=== PATIENT | male | born 1985 | race Caucasian/White ===

== ENCOUNTER 2018-03-18 01:09 | Emergency (ER) | payer SELFPAY ==
[~2018-03-18] VITALS: Ht 177.8 cm; Wt 63.5 kg
--- OUTSIDE RECORDS SUMMARY | 2018-03-18 01:16 | XMS REPORT ---
Author Author SHAKEEL ERIC [facility] Address [address] [place] [address] Care Team Providers Care Division Head Name Role Phone SHAKEEL ERIC Unavailable PROBLEMS Type Condition ICD9-CM Code [id number] Code Onset Dates Condition Status SNOMED Code Problem Depression F32.9 Active 97776788 Problem Anxiety F41.9 Active 63288606 ALLERGIES No Known Allergies SOCIAL HISTORY No smoking Hx information available PLAN OF CARE VITAL SIGNS MEDICATIONS Medication Instructions Dosage Frequency Start Date End Date Duration Status Vistaril 25 MG Orally 2 times a day 1 capsule as needed 12h 22 Feb, 2015 Active RESULTS No Results PROCEDURES No Known procedures IMMUNIZATIONS No Known Immunizations
--- OUTSIDE RECORDS SUMMARY | 2018-03-18 01:16 | XMS REPORT ---
Author Author SHAKEEL ERIC [facility] e[employer] Address Unknown Phone Unavailable Care Team Providers Care Belt Sander Stone Name Role Phone SHAKEEL ERIC CP Unavailable Allergies, Adverse Reactions, Alerts Substance Reaction Event Type N.K.D.A. Info Not Available Non Drug Allergy Problems Problem Type Condition Code Onset Dates Condition Status Problem Anxiety F41.9 Active Assessment Depression F32.9 Active Problem Depression F32.9 Active Assessment Anxiety F41.9 Active Medications Medication Code System Code Instructions Start Date End Date Status Dosage Clonidine HCl [facility] [address]-35 0.1 MG Orally Once a day in the am Feb 28, 2015 1 tablet Lexapro [facility] [address]-94 10 MG Orally Once a day Feb 28, 2015 1 tablet Vistaril [facility] [address]-55 25 MG Orally 2 times a day Feb 28, 2015 1 capsule as needed Procedures Procedure Coding System Code Date Office Visit, Est Pt., Level 3 CPT-4 13076 Mar 14, 2015 Vital Signs Date/Time: Mar 14, 2015 Temperature 97.5 F Weight 136.9 lbs Height 70 in BMI 19.64 Index Blood Pressure Diastolic 76 mmHg Blood Pressure Systolic 106 mmHg Cardiac Monitoring Heart Rate 60 bpm Results No Known Results Summary Purpose eClinicalWorks Submission
--- OUTSIDE RECORDS SUMMARY | 2018-03-18 01:16 | XMS REPORT ---
Author Author SHAKEEL ERIC [facility] eClinical[employer] Address Unknown Phone Unavailable Care Team Providers Care Silverer Name Role Phone SHAKEEL ERIC CP Unavailable Allergies, Adverse Reactions, Alerts Substance Reaction Event Type N.K.D.A. Info Not Available Non Drug Allergy Problems Problem Type Condition Code Onset Dates Condition Status Problem Anxiety F41.9 Active Assessment Depression F32.9 Active Problem Depression F32.9 Active Assessment Anxiety F41.9 Active Medications Medication Code System Code Instructions Start Date End Date Status Dosage Vistaril [facility] [address]-67 25 MG Orally 2 times a day Feb 28, 2015 1 capsule as needed Clonidine HCl [facility] [address]-94 0.1 MG Orally Once a day in the am Feb 28, 2015 1 tablet Lexapro [facility] [address]-20 10 MG Orally Once a day Feb 28, 2015 1 tablet Procedures Procedure Coding System Code Date COMPREHEN METABOLIC PANEL CPT-4 95418 Feb 28, 2015 ASSAY THYROID STIM HORMONE CPT-4 18702 Feb 28, 2015 COMPLETE CBC W/AUTO DIFF WBC CPT-4 72580 Feb 28, 2015 VENIPUNCT, ROUTINE* CPT-4 03315 Feb 28, 2015 Office Visit, Est Pt., Level 4 CPT-4 41971 Feb 28, 2015 Vital Signs Date/Time: Feb 28, 2015 Temperature 96.5 F Weight 138.9 lbs Height 70 in BMI 19.93 Index Blood Pressure Diastolic 70 mmHg Blood Pressure Systolic 120 mmHg Cardiac Monitoring Heart Rate 78 bpm Results Name Result Date Reference Range Unit Abnormality Flag CBC ----Lymphs 30 53819393 % ----Neutrophils 61 13562101 % ----Baso (Absolute) 0.0 20150228 0.0-0.2 x10E3/uL ----Hemoglobin 16.1 20150228 12.6-17.7 g/dL ----Eos (Absolute) 0.1 20150228 0.0-0.4 x10E3/uL ----Hematocrit 46.0 91919083 37.5-51.0 % ----Monocytes(Absolute) 0.4 59183359 0.1-0.9 x10E3/uL ----MCV 95 97066824 79-97 fL ----Lymphs (Absolute) 1.5 68860970 0.7-3.1 x10E3/uL ----MCH 33.1 64975511 26.6-33.0 pg H ----Neutrophils (Absolute) 3.0 97681426 1.4-7.0 x10E3/uL ----MCHC 35.0 91690024 31.5-35.7 g/dL ----Immature Granulocytes 0 36173576 % ----Basos 0 63853264 % ----RDW 13.2 45309032 12.3-15.4 % ----Immature Grans (Abs) 0.0 10899408 0.0-0.1 x10E3/uL ----WBC 4.9 22904584 3.4-10.8 x10E3/uL ----Platelets 263 00269673 150-379 x10E3/uL ----Eos 1 47390030 % ----RBC 4.87 85226956 4.14-5.80 x10E6/uL ----Monocytes 8 20150228 % CMP ----Globulin, Total 2.3 08047028 1.5-4.5 g/dL ----eGFR If Africn Am 100 11493603 >59 mL/min/1.73 ----eGFR If NonAfricn Am 87 26006282 >59 mL/min/1.73 ----Albumin, Serum 4.8 20150228 3.5-5.5 g/dL ----Sodium, Serum 139 20150228 134-144 mmol/L ----Protein, Total, Serum 7.1 23308498 6.0-8.5 g/dL ----BUN/Creatinine Ratio 13 20150228 8-19 ----Calcium, Serum 9.5 13380126 8.7-10.2 mg/dL ----AST (SGOT) 14 20150228 0-40 IU/L ----Glucose, Serum 88 20150228 65-99 mg/dL ----Alkaline Phosphatase, S 67 20150228 39-117 IU/L ----Bilirubin, Total 0.7 20150228 0.0-1.2 mg/dL ----Creatinine, Serum 1.13 20150228 0.76-1.27 mg/dL ----A/G Ratio 2.1 20150228 1.1-2.5 ----BUN 15 20150228 6-20 mg/dL ----Carbon Dioxide, Total 26 20150228 18-29 mmol/L ----ALT (SGPT) 19 20150228 0-44 IU/L ----Potassium, Serum 4.0 20150228 3.5-5.2 mmol/L ----Chloride, Serum 98 20150228 97-108 mmol/L ROUTINE VENIPUNCTURE TSH ----TSH 1.760 20150228 0.450-4.500 uIU/mL Summary Purpose eClinicalWorks Submission
--- OUTSIDE RECORDS SUMMARY | 2018-03-18 01:16 | XMS REPORT ---
Author Author SERGIO CASTANON Organization [facility] Address [address] [place] [address] Care Team Providers Care Inspector Wire Products Name Role Phone SERGIO CASTANON Unavailable PROBLEMS Type Condition ICD9-CM Code NIL06-KX Code Onset Dates Condition Status SNOMED Code Problem Other chronic pain G89.29 Active 52144247 Problem Pain in right shoulder M25.511 Active 56312344348233328 Problem Anxiety F41.9 Active 35902311 Problem Depression F32.9 Active 52290190 ALLERGIES No Information ENCOUNTERS Encounter Location Date Diagnosis [place] [id number] [address] May, [facility] [address] [address] Apr, Depression F32.9 ; Anxiety F41.9 ; Pain in right shoulder M25.511 and Other chronic pain G89.29 [facility] [address] [address] Mar, [facility] [address] [place] [id number] [place] [address]- 96[address] Mar, [facility] [address] [address] Mar, [facility] [address] [address] Mar, Anxiety F41.9 and Pain in unspecified knee M25.569 [facility] [address] [address] Dec, Depression F32.9 and Depression 311 [facility] [address] [address]- [address] Dec, Depression F32.9 and Pain in unspecified knee M25.569 [facility] [address] [place] [id number] [place] [address]- 6859 Sep, Depression F32.9 and Anxiety F41.9 [facility] [address] [place] [id number] [place] [address] 60479- 6270 Aug, Acute pain of right shoulder M25.511 [facility] [address] [address]- [address] Aug, Depression F32.9 [facility] [address] [address] Jun, Depression F32.9 [facility] [address] [address]- [address] May, Depression F32.9 [facility] [address] [address]- [address] Dec, Depression F32.9 ; Anxiety F41.9 ; Pain in right shoulder M25.511 and Pain in left shoulder M25.512 [facility] [address] [place] [id number] [place] [address] 47597- 5993 Dec, [facility] [address] [place] [id number] [place] [address] 65646- 6286 Nov, [facility] [address] [address]- [address] Aug, Anxiety F41.9 [facility] [address] [place] [id number] [place] [address] 7[address]69- 9488 July, Depression F32.9 and Anxiety F41.9 [facility] [address] [place] [id number] [place] [address] 93188- 4428 Apr, Depression F32.9 [facility] [address] [place] [id number] [place] [address] 38789- 7211 Mar, [facility] [address] [address] Mar, Depression F32.9 and Anxiety F41.9 [facility] [address] [place] [id number] [place] [address] 055947- 0006 Feb, Depression F32.9 and Anxiety F41.9 [facility] [address] [place] [id number] [place] [address] 46989- 3746 Nov, Depression 311 and Anxiety 300.00 [facility] [address] [place] [id number] [place] [address] 90713- 1376 Oct, Depression 311 and Anxiety 300.00 [facility] [address] [place] [id number] [place] [address] 486615- 9975 Oct, Depression 311 ; Anxiety 300.00 and Sinusitis 473.9 [facility] [address] [place] [id number] [place] [address] 11026- 8871 Sep, Knee pain, chronic 719.46 [facility] [address] [place] [id number] [place] [address] 12185- 3212 Sep, Sinusitis 473.9 ; Knee pain, chronic 719.46 ; Depression 311 and Anxiety 300.00 [facility] [address] [address] Feb, [facility] [address] [address] Feb, [facility] [address] [place] [address] Feb, [facility] [address] [address] Feb, [facility] [address] [address] Feb, [facility] [address] Feb, [facility] [address] [address] Dec, IMMUNIZATIONS No Known Immunizations SOCIAL HISTORY Never Assessed REASON FOR VISIT Refill request PLAN OF CARE VITAL SIGNS MEDICATIONS Unknown Medications RESULTS No Results PROCEDURES No Known procedures INSTRUCTIONS MEDICATIONS ADMINISTERED No Known Medications MEDICAL (GENERAL) HISTORY Type Description Date Medical History depression Medical History labrium tear Right shoulder Surgical History right shoulder surgery Hospitalization History surgery
--- OUTSIDE RECORDS SUMMARY | 2018-03-18 01:16 | XMS REPORT ---
Author Author SHAKEEL Anglin Organization [facility] Address [address] [place] [address] Care Team Providers Care Evaporator Supervisor Name Role Phone SHAKEEL Anglin Unavailable PROBLEMS Type Condition ICD9-CM Code BIW06-LI Code Onset Dates Condition Status SNOMED Code Problem Other chronic pain G89.29 Active 80480917 Problem Pain in right shoulder M25.511 Active 57170304199760633 Problem Anxiety F41.9 Active 72409041 Problem Depression F32.9 Active 30429895 ALLERGIES No Known Allergies ENCOUNTERS Encounter Location Date Diagnosis [place] [id number] [address] May, [facility] [place] [address] [address] Apr, Depression F32.9 ; Anxiety F41.9 ; Pain in right shoulder M25.511 and Other chronic pain G89.29 [facility] [place] [address] [place] [id number] [place] [address] 97161- [address] Mar, [facility] [place] [address] [place] [id number] [place] [address] 84203- 8787 Mar, [facility] [place] [address] [place] [id number] [place] [address] 72191- 04[address] Mar, [facility] [place] [address] [address] Mar, Anxiety F41.9 and Pain in unspecified knee M25.569 [facility] [place] [address] [place] [id number] [place] [address] 91089- 7210 Dec, Depression F32.9 and Depression 311 [facility] [place] [address] [place] [address] [place] [address] Dec, Depression F32.9 and Pain in unspecified knee M25.569 [facility] [place] [address] [place] [id number] [place] [address] 68764- 6506 Sep, Depression F32.9 and Anxiety F41.9 [facility] [place] [address] [place] [id number] [place] [address] 94831- 9969 Aug, Acute pain of right shoulder M25.511 [facility] [place] [address] [place] [id number] [place] [address] 10752- 1082 Aug, Depression F32.9 [facility] [place] [address] [address]- [address] Jun, Depression F32.9 [facility] [place] [address] [place] [id number] [place] [address] 90632- 3646 May, Depression F32.9 [facility] [place] [address] [place] [id number] [place] [address] 92635- 6968 Dec, Depression F32.9 ; Anxiety F41.9 ; Pain in right shoulder M25.511 and Pain in left shoulder M25.512 [facility] [place] [address] [place] [id number] [place] [address] 06800- 5952 Dec, [facility] [place] [address] [place] [id number] [place] [address] 43997- 2766 Nov, [facility] [place] [address] [place] [id number] [place] [address] 60034- 0915 Aug, Anxiety F41.9 [facility] [place] [address] [place] [id number] [place] [address] 64592- 7526 July, Depression F32.9 and Anxiety F41.9 [facility] [place] [address] [place] [id number] [place] [address] 80081- 8691 Apr, Depression F32.9 [facility] [place] [address] [place] [id number] [place] [address] 76888- 3998 Mar, [facility] [place] [address] [place] [address] 19177- 2614 Mar, Depression F32.9 and Anxiety F41.9 [facility] [place] [address] [place] [id number] [place] [address] 18054- 2136 Feb, Depression F32.9 and Anxiety F41.9 [facility] [place] [address] [place] [id number] [place] [address] 35533- 9226 Nov, Depression 311 and Anxiety 300.00 [facility] [place] [address] [place] [id number] [place] [address] 18424- 2268 Oct, Depression 311 and Anxiety 300.00 [facility] [place] [address] [place] [id number] [place] [address] 46574- 9111 Oct, Depression 311 ; Anxiety 300.00 and Sinusitis 473.9 [facility] [place] [address] [place] [id number] [place] [address] 55686- 0317 Sep, Knee pain, chronic 719.46 [facility] [place] [address] [place] [id number] [place] [address] 42543- 5359 Sep, Sinusitis 473.9 ; Knee pain, chronic 719.46 ; Depression 311 and Anxiety 300.00 [facility] [place] [address] [place] [address] 699673- 7490 Feb, [facility] [place] [address] [place] [id number] [place] [address] 40752 2546 Feb, [facility] [place] [address] [place] [id number] [place] [address] 37017 2544 Feb, [facility] [place] [address] [place] [id number] [place] [address] 42933- 3623 Feb, [facility] [place] [address] [place] [id number] [place] [address] 81377- 0963 Feb, [facility] [place] [address] [place] [id number] [place] [address] 06154- 3362 Feb, [facility] [place] [address] [facility] [id number] [place] [address] Dec, IMMUNIZATIONS No Known Immunizations SOCIAL HISTORY Never Assessed REASON FOR VISIT right shoulder pain, PT says he thinks re possible re tore it. At work he was doing heavy moving and felt multiple pops- [place] MA PLAN OF CARE Activity Details Follow Up 4 Weeks Reason: VITAL SIGNS Height 70 in 2016-09-03 Weight 138.7 lbs 2016-09-03 Temperature 98.4 degrees Fahrenheit 2016-09-03 Heart Rate 74 bpm 2016-09-03 Respiratory Rate 18 2016-09-03 BMI 19.90 kg/m2 2016-09-03 Blood pressure systolic 128 mmHg 2016-09-03 Blood pressure diastolic 94 mmHg 2016-09-03 MEDICATIONS Medication Instructions Dosage Frequency Start Date End Date Duration Status Escitalopram Oxalate 20 mg Orally Once a day 1 tablet 24h 30 days Active Ibuprofen 800 MG Orally Three times a day 1 tablet with food or milk 8h Aug, Sep, 30 day(s) Active Vistaril 25 MG Orally 2 times a day 1 capsule as needed 12h Feb, 30 days Active Clonidine HCl 0.1 MG Orally Once a day in the am 1 tablet 30 days Active Cyclobenzaprine HCl 10 mg Orally at hs 1 tablet Dec, 30 day(s ) Active RESULTS Name Result Date Reference Range Xray : Shoulder, Right 2 view (IN HOUSE) 2016-09-03 PROCEDURES Procedure Date Ordered Result Body Site X-RAY EXAM OF SHOULDER September 03, 2016 INSTRUCTIONS MEDICATIONS ADMINISTERED No Known Medications MEDICAL (GENERAL) HISTORY Type Description Date Medical History depression Medical History labrium tear Right shoulder Surgical History right shoulder surgery Hospitalization History surgery
--- OUTSIDE RECORDS SUMMARY | 2018-03-18 01:16 | XMS REPORT ---
Author Author SHAKEEL Anglin Organization [facility] Address [address] [place] [address] Care Team Providers Care Ice House Supervisor Name Role Phone SHAKEEL Anglin Unavailable PROBLEMS Type Condition ICD9-CM Code ESA40-AS Code Onset Dates Condition Status SNOMED Code Problem Other chronic pain G89.29 Active 98543513 Problem Pain in right shoulder M25.511 Active 53755620693355315 Problem Anxiety F41.9 Active 08902699 Problem Depression F32.9 Active 18259284 ALLERGIES No Known Allergies ENCOUNTERS Encounter Location Date Diagnosis [place] [address] [address] May, [facility] [address] [address] Apr, Depression F32.9 ; Anxiety F41.9 ; Pain in right shoulder M25.511 and Other chronic pain G89.29 [facility] [address] [place] [id number] [place] [address] 64507- 6606 Mar, [facility] [address] [place] [id number] [place] [address] 36146- 3224 Mar, [facility] [address] [place] [id number] [place] [address] 25729- 3509 Mar, [facility] [address] [address]- [address] Mar, Anxiety F41.9 and Pain in unspecified knee M25.569 [facility] [address] [place] [id number] [place] [address] 27365- 7105 Dec, Depression F32.9 and Depression 311 [place] [address] [place] [address] [place] [address]- 7410 Dec, Depression F32.9 and Pain in unspecified knee M25.569 [facility] [address] [place] [id number] [place] [address] 37405- 2096 Sep, Depression F32.9 and Anxiety F41.9 [facility] [address] [place] [id number] [place] [address] 51043- 3506 Aug, Acute pain of right shoulder M25.511 [facility] [address] [place] [id number] [place] [address] 47015- 7417 Aug, Depression F32.9 [facility] [address] 42027- 1138 Jun, Depression F32.9 [facility] [address] [place] [id number] [place] [address] 73537- 6710 May, Depression F32.9 [facility] [address] [place] [id number] [place] [address] 66628- 2149 Dec, Depression F32.9 ; Anxiety F41.9 ; Pain in right shoulder M25.511 and Pain in left shoulder M25.512 [facility] [address] [place] [id number] [place] [address] 80423- 2476 Dec, [facility] [address] [place] [id number] [place] [address] 51308- 3956 Nov, [facility] [address] [place] [id number] [place] [address] 03949- 8002 Aug, Anxiety F41.9 [facility] [address] [place] [id number] [place] [address] 42891- 8053 July, Depression F32.9 and Anxiety F41.9 [facility] [address] [place] [id number] [place] [address] 53961- 5452 Apr, Depression F32.9 [facility] [address] [place] [id number] [place] [address] 18048- 5964 Mar, [facility] [address] [place] [address] 27030- 3593 Mar, Depression F32.9 and Anxiety F41.9 [facility] [address] [place] [id number] [place] [address] 29666- 7506 Feb, Depression F32.9 and Anxiety F41.9 [facility] [address] [place] [id number] [place] [address] 34387- 5056 Nov, Depression 311 and Anxiety 300.00 [facility] [address] [place] [id number] [place] [address] 28297- 5509 Oct, Depression 311 and Anxiety 300.00 [facility] [address] [place] [id number] [place] [address] 35781- 6848 Oct, Depression 311 ; Anxiety 300.00 and Sinusitis 473.9 [facility] [address] [place] [id number] [place] [address] 89378- 8275 Sep, Knee pain, chronic 719.46 [facility] [address] [place] [id number] [place] [address] 57558- 6631 Sep, Sinusitis 473.9 ; Knee pain, chronic 719.46 ; Depression 311 and Anxiety 300.00 [facility] [address] [place] [address] 776422- 2090 Feb, [facility] [address] [place] [id number] [place] [address] 15694 2546 Feb, [facility] [address] [place] [id number] [place] [address] 70795 2541 Feb, [facility] [address] [place] [id number] [place] [address] 71293- 1346 Feb, [facility] [address] [place] [id number] [place] [address] 24633- 1034 Feb, [facility] [address] [place] [id number] [place] [address] 85446- 4310 Feb, [facility] [address] [facility] [id number] [place] [id number] Dec, IMMUNIZATIONS No Known Immunizations SOCIAL HISTORY Never Assessed REASON FOR VISIT Depression/ anxiety F/U, pt states that meds are doing ok to an extent. Bren PLAN OF CARE Activity Details Follow Up 3 Months Reason: VITAL SIGNS Height 70 in 2016-10-02 Weight 140.5 lbs 2016-10-02 Temperature 98.3 degrees Fahrenheit 2016-10-02 Heart Rate 80 bpm 2016-10-02 Respiratory Rate 20 2016-10-02 BMI 20.16 kg/m2 2016-10-02 Blood pressure systolic 104 mmHg 2016-10-02 Blood pressure diastolic 68 mmHg 2016-10-02 MEDICATIONS Medication Instructions Dosage Frequency Start Date End Date Duration Status Vistaril 25 MG Orally 2 times a day 1 capsule as needed 12h Feb, 30 days Active Clonidine HCl 0.1 MG Orally Once a day in the am 1 tablet 30 days Active Escitalopram Oxalate 20 mg Orally Once a day 1 tablet 24h 30 days Active Ibuprofen 800 MG Orally Three times a day 1 tablet with food or milk 8h Aug, Sep, 30 day(s) Active Cyclobenzaprine HCl 10 mg Orally at hs 1 tablet Dec, 30 day(s ) Active RESULTS No Results PROCEDURES No Known procedures INSTRUCTIONS MEDICATIONS ADMINISTERED No Known Medications MEDICAL (GENERAL) HISTORY Type Description Date Medical History depression Medical History labrium tear Right shoulder Surgical History right shoulder surgery Hospitalization History surgery
--- OUTSIDE RECORDS SUMMARY | 2018-03-18 01:16 | XMS REPORT ---
Author Author YVETTESAMIA [facility] Address [address] [place] [address] Care Team Providers Care Newspaper Delivery Counselor Name Role Phone SAMIA CRAWFORD Unavailable PROBLEMS Type Condition ICD9-CM Code [id number] Code Onset Dates Condition Status SNOMED Code Problem Other chronic pain G89.29 Active 62502417 Problem Pain in right shoulder M25.511 Active 99543580213709947 Problem Anxiety F41.9 Active 12572358 Problem Depression F32.9 Active 15463027 ALLERGIES No Known Allergies ENCOUNTERS Encounter Location Date Diagnosis [facility] [id number] [place] [address] 35073- 6672 Jan, Depression F32.9 ; Screening for diabetes mellitus Z13.1 ; Screening for hyperlipidemia Z13.220 ; Screening for thyroid disorder Z13.29 and Pain in right shoulder M25.511 [facility] [id number] [place] [address] 33322- 4766 May, [facility] [id number] [place] [address] 93117- 0479 Apr, Depression F32.9 ; Anxiety F41.9 ; Pain in right shoulder M25.511 and Other chronic pain G89.29 [facility] [id number] [place] [address] 54916- 2533 Mar, [facility] [address] 27718- 6012 Mar, [facility] [address] 27710- 4366 Mar, [facility] [id number] [place] [address] 09264- 6962 Mar, Anxiety F41.9 and Pain in unspecified knee M25.569 [facility] [id number] [place] [address] 53782- 7896 Dec, Depression F32.9 and Depression 311 [facility] [id number] [place] [address] [phone]- 9126 Dec, Depression F32.9 and Pain in unspecified knee M25.569 [facility] [id number] [place] [address] 59092- 5776 Sep, Depression F32.9 and Anxiety F41.9 [facility] [id number] [place] [address] 71763- 7488 Aug, Acute pain of right shoulder M25.511 [facility] [id number] [place] [address] 90262- 2026 Aug, Depression F32.9 [facility] [id number] [place] [address] 52081- 8081 Jun, Depression F32.9 [facility] [id number] [place] [address] 81493- 5963 May, Depression F32.9 [facility] [id number] [place] [address] 50314- 4725 Dec, Depression F32.9 ; Anxiety F41.9 ; Pain in right shoulder M25.511 and Pain in left shoulder M25.512 [facility] [id number] [place] [address] 20374- 7194 Dec, [facility] [id number] [place] [address] 76983- 3696 Nov, [facility] [id number] [place] [address] 77244- 7866 Aug, Anxiety F41.9 [facility] [id number] [place] [address] 46190- 5646 July, Depression F32.9 and Anxiety F41.9 [facility] [address] [place] [address] 96198- 4066 Apr, Depression F32.9 [facility] [id number] [place] [address] 00100- 4366 Mar, [facility] [id number] [place] [address] 91266- 4956 Mar, Depression F32.9 and Anxiety F41.9 [facility] [id number] [place] [address] 997680- 9183 Feb, Depression F32.9 and Anxiety F41.9 [facility] [id number] [place] [address] 443294- 4301 Nov, Depression 311 and Anxiety 300.00 [facility] [id number] [place] [address] 67957- 6209 Oct, Depression 311 and Anxiety 300.00 [facility] [id number] [place] [address] 88462- 9080 Oct, Depression 311 ; Anxiety 300.00 and Sinusitis 473.9 [facility] [id number] [place] [address] 07321- 5691 Sep, Knee pain, chronic 719.46 [facility] [id number] [place] [address] 01772- 3628 Sep, Sinusitis 473.9 ; Knee pain, chronic 719.46 ; Depression 311 and Anxiety 300.00 [facility] [address] [place] [address] 47908- 1189 Feb, [facility] [id number] [place] [address] 712041- 3577 Feb, [facility] [id number] [place] [address] 096352- 2083 Feb, [facility] [id number] [place] [address] 971030- 0476 Feb, [facility] [address] [facility] [id number] [place] [address]- 2046 Feb, [facility] [address] [facility] [id number] 8820 Feb, [facility] [address] [facility] [id number] [place]- 0405 Dec, IMMUNIZATIONS No Known Immunizations SOCIAL HISTORY Never Assessed REASON FOR VISIT new patient -- pam hill PLAN OF CARE Activity Details Follow Up 6 Months or as indicated by lab Reason:depression VITAL SIGNS Height 70 in 2018-01-09 Weight 141.0 lbs 2018-01-09 Temperature 97.8 degrees Fahrenheit 2018-01-09 BMI 20.23 kg/m2 2018-01-09 Blood pressure systolic 122 mmHg 2018-01-09 Blood pressure diastolic 78 mmHg 2018-01-09 MEDICATIONS Medication Instructions Dosage Frequency Start Date End Date Duration Status Escitalopram Oxalate 20 mg Orally Once a day 1 tablet 24h Active Clonidine HCl 0.1 MG Orally Once a day in the am 1 tablet Active Vistaril 25 MG Orally 2 times a day 1 capsule as needed 12h Feb, Active Ibuprofen 800 MG Orally Three times a day 1 tablet with food or milk 8h Active RESULTS No Results PROCEDURES Procedure Date Ordered Result Body Site LIPID PANEL Jan 09, 2018 ASSAY THYROID STIM HORMONE Jan 09, 2018 COMPREHEN METABOLIC PANEL Jan 09, 2018 INSTRUCTIONS MEDICATIONS ADMINISTERED No Known Medications MEDICAL (GENERAL) HISTORY Type Description Date Medical History depression Medical History labrium tear Right shoulder Surgical History right shoulder surgery Hospitalization History surgery
--- OUTSIDE RECORDS SUMMARY | 2018-03-18 01:17 | XMS REPORT ---
Author Author SERGIO CASTANON Organization [facility] Address [address] [place] [address] Care Team Providers Care Inspector Shells Name Role Phone SERGIO CASTANON Unavailable PROBLEMS Type Condition ICD9-CM Code EMP17-OT Code Onset Dates Condition Status SNOMED Code Problem Other chronic pain G89.29 Active 86192844 Problem Pain in right shoulder M25.511 Active 29000031738678745 Problem Anxiety F41.9 Active 17612427 Problem Depression F32.9 Active 69755002 ALLERGIES No Information ENCOUNTERS Encounter Location Date Diagnosis [place] [id number] [address]- 6892 May, [facility] [address] 24767- 0115 Apr, Depression F32.9 ; Anxiety F41.9 ; Pain in right shoulder M25.511 and Other chronic pain G89.29 [facility] [address] 96454- 9230 Mar, [facility] [id number] [place] [address] 59194- 3684 Mar, [facility] [address] 58923- 6383 Mar, [facility] [address] 98048- 8978 Mar, Anxiety F41.9 and Pain in unspecified knee M25.569 [facility] [address] 74031- 3074 Dec, Depression F32.9 and Depression 311 [facility] [address] 77557- 8892 Dec, Depression F32.9 and Pain in unspecified knee M25.569 [facility] [id number] [place] [address] 36044- 0540 Sep, Depression F32.9 and Anxiety F41.9 [facility] [id number] [place] [address] 84495- 5753 Aug, Acute pain of right shoulder M25.511 [facility] [address] 59948- 0736 Aug, Depression F32.9 [facility] [address] 92947- 1764 Jun, Depression F32.9 [facility] [address] 32311- 2264 May, Depression F32.9 [facility] [address] 13460- 6096 Dec, Depression F32.9 ; Anxiety F41.9 ; Pain in right shoulder M25.511 and Pain in left shoulder M25.512 [facility] [id number] [place] [address] 76944- 5892 Dec, [facility] [id number] [place] [address] 83307- 2479 Nov, [facility] [address] 91414- 0510 Aug, Anxiety F41.9 [facility] [id number] [place] [address] 76332- 5768 July, Depression F32.9 and Anxiety F41.9 [facility] [id number] [place] [address] 62838- 9106 Apr, Depression F32.9 [facility] [id number] [place] [address] 97106- 0931 Mar, [facility] [address] [address]- 6316 Mar, Depression F32.9 and Anxiety F41.9 [facility] [id number] [place] [address] 623807- 5716 Feb, Depression F32.9 and Anxiety F41.9 [facility] [id number] [place] [address] 17978- 8786 Nov, Depression 311 and Anxiety 300.00 [facility] [id number] [place] [address] 06122- 1995 Oct, Depression 311 and Anxiety 300.00 [facility] [id number] [place] [address] 371899- 5624 Oct, Depression 311 ; Anxiety 300.00 and Sinusitis 473.9 [facility] [id number] [place] [address] 53084- 9957 Sep, Knee pain, chronic 719.46 [facility] [id number] [place] [address] 49494- 9238 Sep, Sinusitis 473.9 ; Knee pain, chronic 719.46 ; Depression 311 and Anxiety 300.00 [facility] [address] [address]- 5669 Feb, [facility] [address] [address]- 9441 Feb, [facility] [id number] 0338 Feb, [facility] [address] 7080 Feb, [facility] [address] 7096 Feb, [facility] [address] 5817 Feb, [facility] [address] [address]- 1192 Dec, IMMUNIZATIONS No Known Immunizations SOCIAL HISTORY Never Assessed REASON FOR VISIT med refill PLAN OF CARE VITAL SIGNS MEDICATIONS Unknown Medications RESULTS No Results PROCEDURES No Known procedures INSTRUCTIONS MEDICATIONS ADMINISTERED No Known Medications MEDICAL (GENERAL) HISTORY Type Description Date Medical History depression Medical History labrium tear Right shoulder Surgical History right shoulder surgery Hospitalization History surgery
--- OUTSIDE RECORDS SUMMARY | 2018-03-18 01:17 | XMS REPORT ---
Author Author MONIKA LOW [employer] Address Unknown Phone Unavailable Care Team Providers Care Salon Designer Name Role Phone MONIKA LOW CP Unavailable Allergies, Adverse Reactions, Alerts Substance Reaction Event Type N.K.D.A. Info Not Available Non Drug Allergy Problems Problem Type Condition Code Onset Dates Condition Status Problem Anxiety F41.9 Active Assessment Depression F32.9 Active Problem Depression F32.9 Active Medications Medication Code System Code Instructions Start Date End Date Status Dosage Vistaril [facility] [address]-90 25 MG Orally 2 times a day Feb 28, 2015 1 capsule as needed Clonidine HCl [facility] [address]-95 0.1 MG Orally Once a day in the am Feb 28, 2015 1 tablet Lexapro [facility] [address]-02 10 MG Orally Once a day Feb 28, 2015 1 tablet Vital Signs Date/Time: Apr 13, 2015 Cardiac Monitoring Heart Rate 60 bpm Weight 136 lbs Height 70 in BMI 19.51 Index Blood Pressure Diastolic 64 mmHg Blood Pressure Systolic 100 mmHg Results No Known Results Summary Purpose [employer] Submission
--- OUTSIDE RECORDS SUMMARY | 2018-03-18 01:17 | XMS REPORT ---
Author Author SERGIO CASTANON Organization [facility] Address [address] [place] [address] Care Team Providers Care Card Room Manager Name Role Phone SERGIO CASTANON Unavailable PROBLEMS Type Condition ICD9-CM Code [id number] Code Onset Dates Condition Status SNOMED Code Problem Other chronic pain G89.29 Active 65002424 Problem Pain in right shoulder M25.511 Active 71037466612044819 Problem Anxiety F41.9 Active 04598965 Problem Depression F32.9 Active 10646005 ALLERGIES No Information ENCOUNTERS Encounter Location Date Diagnosis [place] [id number] [address]- [address] May, [facility] [address] 7[address]58- 6252 Apr, Depression F32.9 ; Anxiety F41.9 ; Pain in right shoulder M25.511 and Other chronic pain G89.29 [facility] [address] 08571- 6362 Mar, [facility] [id number] [place] [address] 26682- 3266 Mar, [facility] [address] 99836- 9529 Mar, [facility] [address] 71684- 6681 Mar, Anxiety F41.9 and Pain in unspecified knee M25.569 [facility] [address] 99997- 6346 Dec, Depression F32.[address] [facility] [address] 87595- 4598 Dec, Depression F32.9 and Pain in unspecified knee M25.569 [facility] [id number] [place] [address] 59673- 0022 Sep, Depression F32.[address] [facility] [id number] [place] [address] 76952- 9155 Aug, Acute pain of right shoulder M25.511 [facility] [address] 97315- 7892 Aug, Depression F32.9 [facility] [address] 94713- 9398 Jun, Depression [address]32.9 [facility] [address] 89249- 7100 May, Depression F32.9 [facility] [address] 49563- 6611 Dec, Depression F32.9 ; Anxiety F41.9 ; Pain in right shoulder M25.511 and Pain in left shoulder M25.512 [facility] [id number] [place] [address] 49785- 0542 Dec, [facility] [id number] [place] [address] 12760- 6261 Nov, [facility] [address] 18472- 0662 Aug, Anxiety F41.9 [facility] [id number] [place] [address] 53173- 3890 July, Depression F32.[address] [facility] [id number] [place] [address] 78097- 8567 Apr, Depression F32.9 [facility] [id number] [place] [address] 67148- 3039 Mar, [facility] [address] [address]- 3999 Mar, Depression F32.[address] [facility] [id number] [place] [address] 811898- 7316 Feb, Depression F32.[address] [facility] [id number] [place] [address] 79739- 9746 Nov, Depression [address] [facility] [id number] [place] [address] 79059- 3512 Oct, Depression [address] [facility] [id number] [place] [address] 977116- 7784 Oct, Depression 311 ; Anxiety 300.[address] [facility] [id number] [place] [address] 90333- 9313 Sep, Knee pain, chronic 719.46 [facility] [id number] [place] [address] 41574- 6233 Sep, Sinusitis 473.9 ; Knee pain, chronic 719.46 ; Depression [address] [facility] [address] [address]- 8351 Feb, [facility] [address] [address] 2184 Feb, [facility] [id number] 7153 Feb, [facility] [address] 64[address] Feb, [facility] [address] Feb, [facility] [address] [address] Feb, [facility] [address] [address]- 8976 Dec, IMMUNIZATIONS No Known Immunizations SOCIAL HISTORY Never Assessed REASON FOR VISIT Controlled Med Refill PLAN OF CARE VITAL SIGNS MEDICATIONS Unknown Medications RESULTS No Results PROCEDURES No Known procedures INSTRUCTIONS MEDICATIONS ADMINISTERED No Known Medications MEDICAL (GENERAL) HISTORY Type Description Date Medical History depression Medical History labrium tear Right shoulder Surgical History right shoulder surgery Hospitalization History surgery
--- OUTSIDE RECORDS SUMMARY | 2018-03-18 01:17 | XMS REPORT ---
Author Author SHAKEEL ERIC [facility] Address [address] [place] [address] Care Team Providers Care Associate Principal Name Role Phone SHAKEEL ERIC Unavailable PROBLEMS Type Condition ICD9-CM Code WEW66-CD Code Onset Dates Condition Status SNOMED Code Problem Anxiety F41.9 Active 46579510 Problem Depression F32.9 Active 69215839 ALLERGIES No Information SOCIAL HISTORY Never Assessed PLAN OF CARE VITAL SIGNS MEDICATIONS Medication Instructions Dosage Frequency Start Date End Date Duration Status Cyclobenzaprine HCl 10 mg Orally at hs 1 tablet Dec, 30 day(s ) Active Escitalopram Oxalate 20 mg Orally Once a day 1 tablet 24h 30 days Active RESULTS No Results PROCEDURES No Known procedures IMMUNIZATIONS No Known Immunizations MEDICAL (GENERAL) HISTORY Type Description Date Medical History depression Surgical History right shoulder surgery Hospitalization History surgery
--- OUTSIDE RECORDS SUMMARY | 2018-03-18 01:17 | XMS REPORT ---
Author Author SHAKEEL ERIC [facility] [employer] Address Unknown Phone Unavailable Care Team Providers Care Plumbing Engineer Name Role Phone SHAKEEL ERIC Unavailable Allergies No Known Allergies Problems Problem Type Condition Code Onset Dates Condition Status Problem Anxiety F41.9 Active Problem Depression F32.9 Active Medications Medication Code System Code Instructions Start Date End Date Status Dosage Lexapro [facility] [address]-45 10 MG Orally Once a day Feb 28, 2015 1 tablet Clonidine HCl [facility] [address]-09 0.1 MG Orally Once a day in the am Feb 28, 2015 1 tablet Vistaril [facility] [address]-62 25 MG Orally 2 times a day Feb 28, 2015 1 capsule as needed Results No Known Results Summary Purpose [employer]Clinical[employer] Submission
--- OUTSIDE RECORDS SUMMARY | 2018-03-18 01:17 | XMS REPORT ---
Author Author SERGIO CASTANON Organization [facility] Address [address] [place] [address] Care Team Providers Care Intake Clerk Name Role Phone SERGIO CASTANON Unavailable PROBLEMS Type Condition ICD9-CM Code [id number] Code Onset Dates Condition Status SNOMED Code Problem Other chronic pain G89.29 Active 06764526 Problem Pain in right shoulder M25.511 Active 90460749980080871 Problem Anxiety F41.9 Active 95591545 Problem Depression F32.9 Active 68400456 ALLERGIES No Information ENCOUNTERS Encounter Location Date Diagnosis [place] [address] [address] May, [facility] [address] [address] Apr, Depression F32.9 ; Anxiety F41.9 ; Pain in right shoulder M25.511 and Other chronic pain G89.29 [facility] [address] [address]- [address] Mar, [facility] [address] [place] [id number] [place] [address] 13955- 6660 Mar, [facility] [address] [address]- [address] Mar, [facility] [address] [address]- 3[address] Mar, Anxiety F41.9 and Pain in unspecified knee M25.569 [facility] [address] [address]- [address] Dec, Depression F32.9 and Depression 311 [facility] [address] [address]- 1314 Dec, Depression F32.9 and Pain in unspecified knee M25.569 [facility] [address] [place] [id number] [place] [address] 77400- 5570 Sep, Depression F32.9 and Anxiety F41.9 [facility] [address] [place] [id number] [place] [address] 90419- 6861 Aug, Acute pain of right shoulder M25.511 [facility] [address] [address]- [address] Aug, Depression F32.9 [facility] [address] [address]- 3325 Jun, Depression F32.9 [facility] [address] 18[address]- 2824 May, Depression F32.9 [facility] [address] 429[address]- 3388 Dec, Depression F32.9 ; Anxiety F41.9 ; Pain in right shoulder M25.511 and Pain in left shoulder M25.512 [facility] [address] [place] [id number] [place] [address] 50393- 2260 Dec, [facility] [address] [place] [id number] [place] [address] 03428- 8804 Nov, [facility] [address] 9[address]- 4911 Aug, Anxiety F41.9 [facility] [address] [place] [id number] [place] [address] 93260- 5332 July, Depression F32.9 and Anxiety F41.9 [facility] [address] [place] [id number] [place] [address] 51171- 9180 Apr, Depression F32.9 [facility] [address] [place] [id number] [place] [address] 32051- 8854 Mar, [facility] [address] [address] 8[address] Mar, Depression F32.9 and Anxiety F41.9 [facility] [address] [place] [id number] [place] [address] 081754- 5366 Feb, Depression F32.9 and Anxiety F41.9 [facility] [address] [place] [id number] [place] [address] 68242- 2396 Nov, Depression 311 and Anxiety 300.00 [facility] [address] [id number] [place] [address] 57213- 7368 Oct, Depression 311 and Anxiety 300.00 [facility] [address] [place] [id number] [place] [address] 102677- 2536 Oct, Depression 311 ; Anxiety 300.00 and Sinusitis 473.9 [facility] [address] [id number] [place] [address] 07287- 6593 Sep, Knee pain, chronic 719.46 [facility] [address] [id number] [place] [address] 16893- 7764 Sep, Sinusitis 473.9 ; Knee pain, chronic 719.46 ; Depression 311 and Anxiety 300.00 [facility] [address] [address]- 05[address] Feb, [facility] [address] [address]- 4798 Feb, [facility] [address] [place] [id number] 8[address] Feb, [facility] [address] [address] Feb, [facility] [address] [address] Feb, [facility] [address] 6[address] Feb, [facility] [address] [address]- 9695 Dec, IMMUNIZATIONS No Known Immunizations SOCIAL HISTORY Never Assessed REASON FOR VISIT PLAN OF CARE VITAL SIGNS MEDICATIONS Medication Instructions Dosage Frequency Start Date End Date Duration Status Escitalopram Oxalate 20 mg Orally Once a day 1 tablet 24h 30 Active RESULTS No Results PROCEDURES No Known procedures INSTRUCTIONS MEDICATIONS ADMINISTERED No Known Medications MEDICAL (GENERAL) HISTORY Type Description Date Medical History depression Medical History labrium tear Right shoulder Surgical History right shoulder surgery Hospitalization History surgery
--- OUTSIDE RECORDS SUMMARY | 2018-03-18 01:17 | XMS REPORT ---
Author SHAKEEL Garcia [facility] [employer] Address Unknown Phone Unavailable Care Team Providers Care Fish Hatchery Man Name Role Phone SHAKEEL ERIC CP Unavailable Allergies, Adverse Reactions, Alerts Substance Reaction Event Type N.K.D.A. Info Not Available Non Drug Allergy Problems Problem Type Condition ICD-9 Code Onset Dates Condition Status Problem Knee pain, chronic 719.46 Active Problem Depression 311 Active Problem Sinusitis 473.9 Active Assessment Anxiety 300.00 Active Problem Anxiety 300.00 Active Assessment Depression 311 Active Medications Medication Code System Code Instructions Start Date End Date Status Dosage BusPIRone HCl [facility] [address]-45 10 MG Orally Twice a day Nov 21, 2014 1 tablet Procedures Procedure Coding System Code Date Office Visit, Est Pt., Level 3 CPT-4 63102 Nov 21, 2014 Vital Signs Date/Time: Nov 21, 2014 Temperature 97.4 F Weight 137.5 lbs Height 70 in BMI 19.73 Index Blood Pressure Diastolic 60 mmHg Blood Pressure Systolic 120 mmHg Cardiac Monitoring Heart Rate 70 bpm Results No Known Results Summary Purpose [employer]Clinical[employer] Submission
--- OUTSIDE RECORDS SUMMARY | 2018-03-18 01:17 | XMS REPORT ---
Author Author SHAKEEL Anglin Organization [facility] Address [address] [place] [address] Care Team Providers Care Thread Winder Name Role Phone SHAKEEL Anglin Unavailable PROBLEMS Type Condition ICD9-CM Code [id number]-WQ Code Onset Dates Condition Status SNOMED Code Problem Other chronic pain G89.29 Active 39891320 Problem Pain in right shoulder M25.511 Active 01426484455016322 Problem Anxiety F41.9 Active 03564091 Problem Depression F32.9 Active 58184011 ALLERGIES No Information ENCOUNTERS Encounter Location Date Diagnosis [place] [address] [address] May, [facility] [address] [address]- [address] Apr, Depression F32.9 ; Anxiety F41.9 ; Pain in right shoulder M25.511 and Other chronic pain G89.29 [facility] [address] [place] [id number] [place] [address] 59736- 7659 Mar, [facility] [address] 0[address]- 3[address] Mar, [facility] [address] 17[address]- 49[address] Mar, [facility] [address] 398[address]- 5234 Mar, Anxiety F41.9 and Pain in unspecified knee M25.569 [facility] [address] 7[address]- 1226 Dec, Depression F32.9 and Depression 311 [facility] [address] [place] [address]- 4942 Dec, Depression F32.9 and Pain in unspecified knee M25.569 [facility] [address] [place] [id number] [place] [address] 96764- 8886 Sep, Depression F32.9 and Anxiety F41.9 [facility] [address] [place] [id number] [place] [address] 77407- 8762 Aug, Acute pain of right shoulder M25.511 [facility] [address] [place] [id number] [place] [address] 41535- 3864 Aug, Depression F32.9 [facility] [address] 780[address]- 5941 Jun, Depression F32.9 [facility] [address] [place] [id number] [place] [address] 27327- 8879 May, Depression F32.9 [facility] [address] [place] [id number] [place] [address] 08871- 4224 Dec, Depression F32.9 ; Anxiety F41.9 ; Pain in right shoulder M25.511 and Pain in left shoulder M25.512 [facility] [address] [place] [id number] [place] [address] 96521- 2609 Dec, [facility] [address] [place] [id number] [place] [address] 38101- 6034 Nov, [facility] [address] [place] [id number] [place] [address] 40699- 0527 Aug, Anxiety F41.9 [facility] [address] [place] [id number] [place] [address] 32666- 1161 July, Depression F32.9 and Anxiety F41.9 [facility] [address] [place] [id number] [place] [address] 92485- 0106 Apr, Depression F32.9 [facility] [address] [place] [id number] [place] [address] 10530- 0781 Mar, [facility] [address] [address]- 4603 Mar, Depression F32.9 and Anxiety F41.9 [facility] [address] [place] [id number] [place] [address] 32183- 1806 Feb, Depression F32.9 and Anxiety F41.9 [facility] [address] [place] [id number] [place] [address] 68956- 8106 Nov, Depression 311 and Anxiety 300.00 [facility] [address] [place] [id number] [place] [address] 42593- 5310 Oct, Depression 311 and Anxiety 300.00 [facility] [address] [place] [id number] [place] [address] 012918- 0080 Oct, Depression 311 ; Anxiety 300.00 and Sinusitis 473.9 [facility] [address] [place] [id number] [place] [address] 56904- 5532 Sep, Knee pain, chronic 719.46 [facility] [address] [place] [id number] [place] [address] 56581- 2009 Sep, Sinusitis 473.9 ; Knee pain, chronic 719.46 ; Depression 311 and Anxiety 300.00 [facility] [address] [place] [address] 644613- 4623 Feb, [facility] [address] [place] [id number] [place] [address] 64401- 8516 Feb, [facility] [address] [place] [id number] [place] [address] 33750- 5979 Feb, [facility] [address] [place] [id number] [place] [address] 39260- 6957 Feb, [facility] [address] [place] [address] 854844- 4963 Feb, [facility] [address] [place] [id number] [place] [address] 81302- 3296 Feb, [facility] [address] [facility] [id number] [address]- 9[address] Dec, IMMUNIZATIONS No Known Immunizations SOCIAL HISTORY Never Assessed REASON FOR VISIT Repository Medication PLAN OF CARE VITAL SIGNS MEDICATIONS Medication Instructions Dosage Frequency Start Date End Date Duration Status Escitalopram Oxalate 20 mg Orally Once a day 1 tablet 24h 30 days Active Ibuprofen 800 MG Orally Three times a day 1 tablet with food or milk 8h Aug, Active RESULTS No Results PROCEDURES No Known procedures INSTRUCTIONS MEDICATIONS ADMINISTERED No Known Medications MEDICAL (GENERAL) HISTORY Type Description Date Medical History depression Medical History labrium tear Right shoulder Surgical History right shoulder surgery Hospitalization History surgery
--- OUTSIDE RECORDS SUMMARY | 2018-03-18 01:17 | XMS REPORT ---
Author Author SERGIO CASTANON Organization [facility] Address [address] [place] [address] Care Team Providers Care Spirits Model Name Role Phone SERGIO CASTANON Unavailable PROBLEMS Type Condition ICD9-CM Code [id number] Code Onset Dates Condition Status SNOMED Code Problem Other chronic pain G89.29 Active 39921907 Problem Pain in right shoulder M25.511 Active 03391565871235047 Problem Anxiety F41.9 Active 59684011 Problem Depression F32.9 Active 74071828 ALLERGIES No Known Allergies ENCOUNTERS Encounter Location Date Diagnosis [place] [address] [address] May, [facility] [address] [address]- [address] Apr, Depression F32.9 ; Anxiety F41.9 ; Pain in right shoulder M25.511 and Other chronic pain G89.29 [facility] [address] [address]07[address]- 9061 Mar, [facility] [address] [place] [id number] [place] [address] 83814- 9364 Mar, [facility] [address] 163[address]- 7456 Mar, [facility] [address] 93708- 6137 Mar, Anxiety F41.9 and Pain in unspecified knee M25.569 [facility] [address] 47980- 4939 Dec, Depression F32.9 and Depression 311 [facility] [address] [address]- 9854 Dec, Depression F32.9 and Pain in unspecified knee M25.569 [facility] [address] [place] [id number] [place] [address] 82508- 4953 Sep, Depression F32.9 and Anxiety F41.9 [facility] [address] [place] [id number] [place] [address] 67873- 4375 Aug, Acute pain of right shoulder M25.511 [facility] [address] 227[address]- 6308 Aug, Depression F32.9 [facility] [address] 82082- 5761 Jun, Depression F32.9 [facility] [address] [place] [id number] [place] [address] 62515- 5834 May, Depression F32.9 [facility] [address] 35868- 6540 Dec, Depression F32.9 ; Anxiety F41.9 ; Pain in right shoulder M25.511 and Pain in left shoulder M25.512 [facility] [address] [place] [id number] [place] [address] 89738- 6974 Dec, [facility] [address] [place] [id number] [place] [address] 46741- 9601 Nov, [facility] [address] [place] [id number] [place] [address] 02574- 4121 Aug, Anxiety F41.9 [facility] [address] [place] [id number] [place] [address] 25087- 2968 July, Depression F32.9 and Anxiety F41.9 [facility] [address] [place] [id number] [place] [address] 01383- 2636 Apr, Depression F32.9 [facility] [address] [place] [id number] [place] [address] 10769- 5075 Mar, [place] [address] [address]- 2688 Mar, Depression F32.9 and Anxiety F41.9 [facility] [address] [place] [id number] [place] [address] 172718- 3156 Feb, Depression F32.9 and Anxiety F41.9 [facility] [address] [place] [id number] [place] [address] 80985- 8796 Nov, Depression 311 and Anxiety 300.00 [facility] [address] [place] [id number] [place] [address] 19749 2549 Oct, Depression 311 and Anxiety 300.00 [facility] [address] [place] [id number] [place] [address] 044331- 9238 Oct, Depression 311 ; Anxiety 300.00 and Sinusitis 473.9 [facility] [address] [place] [id number] [place] [address] 42786- 2787 Sep, Knee pain, chronic 719.46 [facility] [address] [place] [id number] [place] [address] 00518- 5086 Sep, Sinusitis 473.9 ; Knee pain, chronic 719.46 ; Depression 311 and Anxiety 300.00 [facility] [address] [address]- 7284 Feb, [facility] [address] [address]- 6136 Feb, [facility] [address]- 7927 Feb, [facility] [address] [place] [address] 04355- 7046 Feb, [facility] [address] [address]- 9437 Feb, [facility] [address]- 3000 Feb, [facility] [address] [place] [id number] [address]- 8499 Dec, IMMUNIZATIONS No Known Immunizations SOCIAL HISTORY Never Assessed REASON FOR VISIT Depression, refills have already been done-Ayan [facility]ATHUR PLAN OF CARE Activity Details Follow Up 6 Months Reason: VITAL SIGNS Height 70 in 2016-12-31 Weight 143.4 lbs 2016-12-31 Temperature 97.9 degrees Fahrenheit 2016-12-31 Heart Rate 66 bpm 2016-12-31 Respiratory Rate 18 2016-12-31 BMI 20.57 kg/m2 2016-12-31 Blood pressure systolic 104 mmHg 2016-12-31 Blood pressure diastolic 58 mmHg 2016-12-31 MEDICATIONS Medication Instructions Dosage Frequency Start Date End Date Duration Status Ibuprofen 800 MG Orally Three times a day 1 tablet with food or milk 8h Aug, Active Vistaril 25 MG Orally 2 times a day 1 capsule as needed 12h Feb, 30 days Active Cyclobenzaprine HCl 10 mg Orally at hs 1 tablet Dec, 30 day(s ) Active Escitalopram Oxalate 20 mg Orally Once a day 1 tablet 24h 30 days Active Clonidine HCl 0.1 MG Orally Once a day in the am 1 tablet 30 days Active RESULTS No Results PROCEDURES No Known procedures INSTRUCTIONS MEDICATIONS ADMINISTERED No Known Medications MEDICAL (GENERAL) HISTORY Type Description Date Medical History depression Medical History labrium tear Right shoulder Surgical History right shoulder surgery Hospitalization History surgery
--- OUTSIDE RECORDS SUMMARY | 2018-03-18 01:17 | XMS REPORT ---
Author Author SHAKEEL ERIC Organization [employer] Address Unknown Phone Unavailable Care Team Providers Care Goodwill Ambassador Name Role Phone SHAKEEL ERIC CP Unavailable Allergies, Adverse Reactions, Alerts Substance Reaction Event Type N.K.D.A. Info Not Available Non Drug Allergy Problems Problem Type Condition Code Onset Dates Condition Status Problem Anxiety F41.9 Active Assessment Depression F32.9 Active Problem Depression F32.9 Active Assessment Pain in left shoulder M25.512 Active Assessment Anxiety F41.9 Active Assessment Pain in right shoulder M25.511 Active Medications Medication Code System Code Instructions Start Date End Date Status Dosage Vistaril [facility] [address]-39 25 MG Orally 2 times a day Feb 28, 2015 1 capsule as needed Cyclobenzaprine HCl [facility] [address]-31 10 mg Orally at hs Jan 05, 2016 Apr 04, 2016 1 tablet Clonidine HCl [facility] 22444163272 0.1 MG Orally Once a day in the am 1 tablet Nabumetone [facility] [address]-58 750 MG Orally Twice a day Jan 05, 2016Mar 1 tablet Escitalopram Oxalate [facility] [address]-37 20 mg Orally Once a day 1 tablet Procedures Procedure Coding System Code Date COMPLETE CBC W/AUTO DIFF WBC CPT-4 43718 Jan 05, 2016 ASSAY THYROID STIM HORMONE CPT-4 19515 Jan 05, 2016 COMPREHEN METABOLIC PANEL CPT-4 89182 Jan 05, 2016 Office Visit, Est Pt., Level 4 CPT-4 20638 Jan 05, 2016 RBC SED RATE, AUTOMATED CPT-4 87593 Jan 05, 2016 VENIPUNCT, ROUTINE* CPT-4 14892 Jan 05, 2016 Vital Signs Date/Time: Jan 05, 2016 Cardiac Monitoring Heart Rate 62 bpm Weight 139.5 lbs Height 70 in BMI 20.01 Index Blood Pressure Diastolic 62 mmHg Blood Pressure Systolic 92 mmHg Results Name Result Date Reference Range Unit Abnormality Flag ROUTINE VENIPUNCTURE Summary Purpose [employer] Submission
--- OUTSIDE RECORDS SUMMARY | 2018-03-18 01:18 | XMS REPORT | Continuity of Care Document ---
Author Author [facility] Organization [facility] Address Unknown Phone Unavailable Allergies There is no data. Medications There is no data. Problems There is no data. Procedures There is no data. Results Test Result Range CBC With Differential/Platelet - 01/05/16 11:23 WBC 5.2 x10E3/uL 3.4-10.8 RBC 4.82 x10E6/uL 4.14-5.80 Hemoglobin 15.1 g/dL 12.6-17.7 Hematocrit 44.5 % 37.5-51.0 MCV 92 fL 79-97 MCH 31.3 pg 26.6-33.0 MCHC 33.9 g/dL 31.5-35.7 RDW 13.5 % 12.3-15.4 Platelets 299 x10E3/uL 150-379 Neutrophils 49 % Lymphs 41 % Monocytes 8 % Eos 1 % Basos 1 % Neutrophils (Absolute) 2.5 x10E3/uL 1.4-7.0 Lymphs (Absolute) 2.2 x10E3/uL 0.7-3.1 Monocytes(Absolute) 0.4 x10E3/uL 0.1-0.9 Eos (Absolute) 0.1 x10E3/uL 0.0-0.4 Baso (Absolute) 0.0 x10E3/uL 0.0-0.2 Immature Granulocytes 0 % Immature Grans (Abs) 0.0 x10E3/uL 0.0-0.1 Comp. Metabolic Panel (14) - 01/05/16 11:23 Glucose, Serum 87 mg/dL 65-99 BUN 10 mg/dL 6-20 Creatinine, Serum 0.93 mg/dL 0.76-1.27 eGFR If NonAfricn Am 110 mL/min/1.73 >59 eGFR If Africn Am 127 mL/min/1.73 >59 BUN/Creatinine Ratio 11 8-19 Sodium, Serum 142 mmol/L 136-144 Potassium, Serum 4.3 mmol/L 3.5-5.2 Chloride, Serum 100 mmol/L 97-106 Carbon Dioxide, Total 26 mmol/L 18-29 Calcium, Serum 9.4 mg/dL 8.7-10.2 Protein, Total, Serum 7.1 g/dL 6.0-8.5 Albumin, Serum 4.5 g/dL 3.5-5.5 Globulin, Total 2.6 g/dL 1.5-4.5 A/G Ratio 1.7 1.1-2.5 Bilirubin, Total 0.3 mg/dL 0.0-1.2 Alkaline Phosphatase, S 70 IU/L 39-117 AST (SGOT) 38 IU/L 0-40 ALT (SGPT) 38 IU/L 0-44 TSH - 01/05/16 11:23 TSH 3.340 uIU/mL 0.450-4.500 Sedimentation Rate-Westergren - 01/05/16 11:23 Sedimentation Rate-Westergren 2 mm/hr 0-15 TSH - 01/09/18 10:59 TSH 1.14 mIU/L 0.40-4.50 Encounters ACCT No. Visit Date/Time Discharge Status Pt. Type Provider Facility Loc./Unit Complaint [id number] 05/30/2014 14:51:56 05/30/2014 23:59:59 CLS Outpatient LILIANA SILVER [id number] 07/28/2013 11:37:17 07/28/2013 23:59:59 CLS Outpatient LILIANA SILVER [id number] 04/28/2017 16:20:00 04/28/2017 23:59:59 CLS Outpatient SERGIO CASTANON MD [facility] [id number] 01/09/2018 10:20:00 Document Registration [id number] 03/06/2013 15:46:00 03/06/2013 23:59:59 CLS Outpatient [id number] 01/06/2016 13:06:00 Document Registration
--- OUTSIDE RECORDS SUMMARY | 2018-03-18 01:18 | XMS REPORT ---
Author Author SHAKEEL ERIC [facility] eClinicalWorks Address Unknown Phone Unavailable Care Team Providers Care Assistant Strength Coach Name Role Phone SHAKEEL ERIC Unavailable Allergies No Known Allergies Problems Problem Type Condition Code Onset Dates Condition Status Problem Anxiety F41.9 Active Problem Depression F32.9 Active Medications Medication Code System Code Instructions Start Date End Date Status Dosage Clonidine HCl [facility] [id number] 0.1 MG Orally Once a day in the am 1 tablet Vistaril [facility] [address]-37 25 MG Orally 2 times a day Feb 28, 2015 1 capsule as needed Escitalopram Oxalate [facility] [address]-13 20 mg Orally Once a day 1 tablet Results No Known Results Summary Purpose eClinicalWorks Submission
[2018-03-18] MEDS ORDERED: KETOROLAC 30 MG/ML VIAL IVP ONE (02:00)
[2018-03-18] MEDS ORDERED: TETANUS,DIPTH,PERTUSS P/F (BOOSTRIX) 0.5 ML VIAL IM ONE (02:00)
[2018-03-18] MEDS ORDERED: HYDR-87 PO (03:40)
--- NOTE | 2018-03-18 03:40 | ED Upper Extremity ---
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 Nursing Sepsis Screen: No Definite Risk Source: patient History of Present Illness Date Seen by Provider: Mar 18, 2018 Time Seen by Provider: 01:45 Initial Comments PT ARRIVES VIA POV FROM HOME STATES HE WAS COOKING WITH HOT OIL AROUND 0100 AND HOT OIL SPLASHED ON HIS LEFT HAND AND FOREARM SEVERAL TIMES RINSED THE AREA WITH COLD WATER AND PUT OVER THE COUNTER BURN CREAM ON IT AND CAME HERE HAS NOT TAKEN ANYTHING FOR PAIN NO PARESTHESIAS OR MOTOR DEFICITS NO PRIOR INJURY TO THIS HAND OR ARM PT IS RIGHT HANDED. LAST TETANUS IS UNKNOWN PCP:[facility] Allergies and Home Medications Allergies Coded Allergies: No Known Drug Allergies (Unverified , 03/18/18) Home Medications Hydrocodone/Ibuprofen 1 Each Tablet, 1 EACH PO Q4H Prescribed by: ROSI DILLON on 03/18/18 0340 Patient Home Medication List Home Medication List Reviewed: Yes Review of Systems Constitutional: no symptoms reported Musculoskeletal: see HPI Skin: see HPI Psychiatric/Neurological: No Symptoms Reported Past Gfnmuif-Miestb-Udbvip Hx Patient Social History Alcohol Use: Regular Use (1-2 TIMES A WEEK) Recreational Drug Use: No Smoking Status: Never a Smoker Recent Foreign Travel: No Contact w/Someone Who Travel: No Recent Infectious Disease Expo: No Recent Hopitalizations: No Physical Abuse: No Sexual Abuse: No Mistreated: No Fear: No Immunizations Up To Date Tetanus Booster (TDap): Unknown Past Medical History Surgeries: Yes (RIGHT SHOULDER SURGERY X 1) Orthopedic Respiratory: No Cardiac: No Neurological: No Genitourinary: No Gastrointestinal: No Musculoskeletal: Yes (TORN R LABRUM) Endocrine: No HEENT: No Cancer: No Psychosocial: Yes Sleep Difficulties, Anxiety, Depression Integumentary: No Blood Disorders: No Physical Exam Vital Signs Vital Signs - First Documented 03/18/18 01:20 Temp 97.8 Pulse 113 Resp 24 B/P (MAP) 131/100 (110) Pulse Ox 100 O2 Delivery Room Air Capillary Refill : Less Than 3 Seconds Height, Weight, BMI Height: 5'10.00" Weight: 140lbs. oz. 63.428835pu; BMI Method:Stated General Appearance: WD/WN, no apparent distress Elbow/Forearm: Left (PATCHY FIRST DEGREE R[place] TO LEFT FOREARM AND WRIST) Hand: Left (PATCHY FIRST AND SECOND DEGREE [place] TO LEFT HAND AND FINGERS. NO CIRCUMFERENTIAL R[place]. MOTOR/SENSORY/VASCULAR INTACT. SLGIHT SWELLING TO HAND AND AFFECTED FINGERS. FEW PATCHES OF WHAT APPEAR TO BE EARLY BLISTER FORMATION, SKIN INTACT. ) Neurologic/Tendon: normal sensation, normal motor functions, normal tendon functions Neurologic/Psychiatric: information systems administrator II-XII nml as tested, no motor/sensory deficits, alert, oriented x 3, other (VERY FLAT AFFECT. ) Skin: normal color, warm/dry, other (R[place]WA ABOVE) Progress/Results/Core Measures Results/Orders My Orders Orders - ROSI DILLON DO Dipht,Pertuss(Acell),Tet Adult (Boostrix (03/18/18 02:00) Ketorolac Injection (Toradol Injection) (03/18/18 02:00) Rx-Hydrocodone/Apap 5-325 Mg (Rx-Vicodin (03/18/18 03:45) Medications Given in ED Vital Signs/I&O Blood Pressure Mean: 110 Progress Progress Note : Progress Note UNEVENTFUL ER STAY HAND AND FOREARM PLACED IN COOL TAP WATER, WITH IMPROVEMENT IN PAIN PT GIVEN TORADOL WITH FURTHER IMPROVEMENT IN PAIN Departure Impression Primary Impression: FIRST AND SECOND DEGREE R[place]HAWA TO LEFT HAND AND FOREARM Disposition: 01 HOME, SELF-CARE Condition: Stable Departure-Patient Inst. Referrals: [facility] [place] (PCP/Family) Primary Care Physician CARMEN WADE DO Patient Instructions: Skin [place] (DC) Add. Discharge Instructions: COOL COMPRESSES OR SOAK IN COOL WATER AT 20 MINUTE INTERVALS NEEDED FOR PAIN AVOID POPPING BLISTERS IF POSSIBLE IF BLISTERS DO RUPTURE ON THEIR OWN, BEGIN CLEANING TWICE A DAY WITH ANTIBACTERIAL SOAP AND WATER, APPLY ANTIBIOTIC CREAM AND FRESH DRESSING TWICE A DAY FOLLOW UP WITH DR. WADE IN 2-3 DAYS FOR FURTHER CARE All discharge instructions reviewed with patient and/or family. Voiced understanding. Scripts Silver Sulfadiazine (Silvadene) 20 Gm Cream..g. 0 TP BID, #1 TUBE Prov: ROSI DILLON DO 03/19/18 Hydrocodone/Ibuprofen (Hydrocodone-Ibuprofen 7.5-200) 1 Each Tablet 1 EACH PO Q4H for Pain MDD 6, #15 TAB Prov: ROSI DILLON DO 1/9/19 Images Extremities-Upper Progress SEE ADDITIONAL PAPER DIAGRAMS FOR IMAGES ROSI DILLON DO Mar 18, 2018 03:40
[2018-03-18] MEDS ORDERED: RX-HYDROCODONE/APAP 5/325 MG #4 TAB PK PO PRN (03:45)
[2018-03-18 04:30] VITALS: BP 124/87
[2018-03-19] MEDS ORDERED: SILV20CR14 TP (02:59)
== END 2018-03-18 04:30 | disposition home or self-care (01) ==
LOC: EDUNIT# 01:09 → ER 01:11
DX: T23.202A Burn of second degree of left hand, unspecified site, initial encounter (principal); T31.0 Burns involving less than 10% of body surface; F41.9 Anxiety disorder, unspecified; F32.9 Major depressive disorder, single episode, unspecified; Z98.890 Other specified postprocedural states; Z23 Encounter for immunization; X10.2XXA Contact with fats and cooking oils, initial encounter
CPT/HCPCS: 90471; 90715; 96374; 99282